=== PATIENT | female | born 1965 | race Caucasian/White ===

== ENCOUNTER → 2024-03-20 11:37 | Outpatient (REF) | payer OTHER, SELFPAY | LOC: DHSLP 11:37 | PROVIDERS: ATTENDING PHYSICIAN Internal Medicine; FAMILY PHYSICIAN Family Medicine | DX: G47.30 Sleep apnea, unspecified (principal); R06.83 Snoring | CPT/HCPCS: 95800 ==

== ENCOUNTER → 2024-04-02 10:21 | Outpatient (REF) | payer OTHER, SELFPAY | LOC: RCS 10:21 | PROVIDERS: ATTENDING PHYSICIAN Internal Medicine Cardiovascular Disease; FAMILY PHYSICIAN Family Medicine | DX: I48.19 Other persistent atrial fibrillation (principal) | CPT/HCPCS: 93306 ==

== ENCOUNTER 2024-04-13 07:49 | Day surgery (SDC) | payer OTHER, SELFPAY ==
[2024-03-26 09:58] VITALS: BMI 19.1
[2024-03-26 10:21] LABS: % Basophils 0.5 % (0-2); % Eosinophils 0.3 % (0-6); % Immature Granulocytes 0.2 % (0-0.5); % Lymphocytes 23.8 % (20.5-51.1); % Monocytes 6.7 % (1.7-9.3); % Neutrophils 68.5 % (42.2-75.2); Absolute Lymphocytes 1.4 10^3/uL (1.2-3.4); Absolute Monocytes 0.4 10^3/uL (0.1-0.6); Absolute Neutrophils 4.1 10^3/uL (1.4-6.5); Hematocrit 40.5 % (37.0-47.0); Mean Corp Hgb Conc. 34.6 g/dL (33.0-37.0); Mean Corpuscular Hgb 33.3 pg (27.0-31.0); Mean Corpuscular Volume 96.4 fL (81.0-99.0); Mean Platelet Volume 9.1 fL (7.4-10.4); Nucleated Red Blood Cells % 0 %; Platelet Count 221 10^3/uL (130-400); Red Cell Dist. Width 11.6 % (11.5-14.5)
[2024-03-26 10:34] LABS: INR 1.18; PT 15.3 Sec (11.4-14.6)
[2024-03-26 10:35] LABS: ALT (SGPT) 37 U/L (0-35); AST (SGOT) 35 U/L (14-36); Albumin 4.5 g/dl (3.5-5.0); Alkaline Phosphatase 62 U/L (38-126); Blood Urea Nitrogen 20 mg/dl (7-17); Calcium 9.7 mg/dl (8.4-10.2); Carbon Dioxide 28 mmol/L (22-30); Chloride 102 mmol/L (98-107); Estimated Creatinine Clearance 69 ml/min; Glucose 81 mg/dl (70-99); Potassium 4.4 mmol/L (3.5-5.1); Sodium 139 mmol/L (135-145); Total Bilirubin 0.5 mg/dl (0.2-1.3); Total Protein 7.2 g/dl (6.3-8.2); eGFR > 60.00
--- NOTE | 2024-03-26 10:58 | HPS.HSE ---
Family Physician
-
Family Physician: Avinash Mauricio
Chief Complaint
-
Persistent atrial fibrillation.
History of Present Illness
The patient is a 59 year old female presenting today for persistent atrial fibrillation. The patient reports a history of intermittent palpitations, fatigue, and decreased exercise tolerance associated with this diagnosis. She previously
underwent 2 cardioversions, with the last occurring in December 2023, for her arrhythmia. She is on current pharmacological therapy with Metoprolol Succinate. She was previously taking Flecainide but stopped due to a reported adverse side effect of
shortness of breath. She has been compliant with Eliquis for oral anticoagulation. She notes that her atrial fibrillation symptoms greatly interfere with her activities of daily living and overall impact her quality of life. She is interested in
pursuing pulmonary vein isolation for further arrhythmia management. She denies any current complaints today such as chest pain, shortness of breath at rest, nausea, vomiting, diarrhea, lightheadedness, dizziness, cough, sore throat, or fever.
Medical History
Past Medical History
Past Medical History: Reports Other
Additional Past Medical History:
1. Persistent atrial fibrillation, status post cardioversion x2; pharmacological therapy with Metoprolol Succinate, oral anticoagulation with Eliquis.
2. Exercise induced asthma.
3. Nephrolithiasis.
4. Remote migraines.
5. Right retinal tear, status post repair 2016.
Past Surgical History: Reports Other
Additional Past Surgical History:
1. PATTI-guided cardioversion.
2. Cardioversion.
3. Cystoscopy, renal stent placement and subsequent removal.
4. Breast biopsy (benign).
5. D&E.
6. Right retinal tear repair.
7. Bilateral LASIK eye surgery.
Social History
Tobacco: Non-smoker
Alcohol: None
Personal:
Living: Other (She lives in a split level home with her . )
Family History
Family History: Not pertinent
Allergies / Home Medications
Allergy/Medication List:
Home medications:
1. Apixaban 5 mg p.o. twice a day.
2. Cholecalciferol 50 mcg p.o. daily.
3. Estradiol 10 mcg vaginal as needed.
4. Heaven 180 mg p.o. daily as needed.
5. [place] 3-Flaxseed oil 1200 mg p.o. daily.
6. Metoprolol Succinate 25 mg p.o. daily.
7. Asmanex inhaler 1 inhalation daily.
8. Singulair 10 mg p.o. at bedtime.
9. PreserVision 1 tablet p.o. daily.
Allergies: Penicillin. Flecainide. Seasonal.
Review of Systems
-
A 12 point ROS was completed and negative except as noted: Yes
Physical Exam
Vital Signs
Blood pressure 130/75. Heart rate 79. Respirations 18. Pulse ox 100% on room air.
Height 5 feet, 5 inches. Weight 52.1 kg. BMI 19.1.
Physical Exam
General: Well Developed, Well Nourished and No Apparent Distress
HEENT: NormoCephalic, Moist mucous membranes and Atraumatic
Respiratory: Clear
Cardiac: Irregular Rhythm
GI: Soft, Non Tender and Non Distended
Musculoskeletal: Normal Gait & Station
Skin: Warm and Dry
Neuro: AO x 3 and Nonfocal/grossly intact
Laboratory Results
-
03/26/24 10:07
03/26/24 10:07
Laboratory Results
PT 15.3 Sec (11.4-14.6) H 03/26/24 10:07
INR 1.18 03/26/24 10:07
Total Bilirubin 0.5 mg/dl (0.2-1.3) 03/26/24 10:07
AST 35 U/L (14-36) 03/26/24 10:07
ALT 37 U/L (0-35) H 03/26/24 10:07
Alkaline Phosphatase 62 U/L (38-126) 03/26/24 10:07
Type and screen O positive.
EKG 03/26/2024: Atrial fibrillation.
Chest CT 03/26/2024: Short segment common vestibule for the left superior and inferior pulmonary veins, fairly commonly seen and considered normal variant. No evidence for left atrial thrombus.
Impression/Plan
-
IMPRESSION/PLAN:
1. Persistent atrial fibrillation: The patient is in need of pulmonary vein isolation with Dr. Devang Orosco on 04/13/2024. The benefits and risks of the procedure have been explained to the patient. The patient understands these risks and
wishes to proceed. She will not be required to undergo a pre-procedural transesophageal echocardiogram as she has been complaint with her home oral anticoagulation. She will continue Eliquis uninterrupted prior to her procedure. She will take no
medications the morning of her ablation.
[2024-04-13] VITALS (13 sets, daily range): BP systolic 81–109; BP diastolic 55–77
[2024-04-13 12:02] LABS: ACT-LR - POC 285 Seconds (116-155)
[2024-04-13 12:24] LABS: ACT-LR - POC 363 Seconds (116-155)
[2024-04-13 12:46] LABS: ACT-LR - POC 326 Seconds (116-155)
--- NOTE | 2024-04-13 13:46 | ITS.CL.ABL ---
Director Instrumentation - Ablation
Ablation
Procedure Report:
ELECTROPHYSIOLOGIC STUDY AND POSSIBLE ABLATION
DATE: April 13, 2024
Primary Care Provider: Dr. Avinash Mauricio
Primary Military Administrative Technician: Dr Giacomo Leonard
INDICATION:
Symptomatic Atrial Fibrillation.
Persistent
HISTORY: See H and P.
Symptomatic AF, poorly controlled with attempted medical therapy
HAS-BLED: 1
Age
CHADSVASc: 0
PRESENTING RHYTHM: AF
HISTORY: See H and P.
Symptomatic AF, poorly controlled with attempted medical therapy.
ANTICOAGULATION: Apixaban 5 mg twice daily
'TIME-OUT': called and confirmed.
SEDATION/ANESTHESIA: provided via the anesthesia department using general anesthesia.
PROCEDURE:
Ultrasound Guidance performed by wa was utilized for femoral venous Vascular Access b/l.
A decapolar CS catheter was placed within the CS for mapping and pacing.
The intracardiac ultrasound catheter was positioned in the RA for continuous intracardiac ultrasound imaging.
Heparin bolus and infusion to target ACT at 300 -350 seconds was administered. Transseptal puncture was performed. This entailed advancing a sheath with dilator into the superior vena cava and withdrawing both (monitoring intracardiac ultrasound,
fluoroscopy and tip pressure) with the tip oriented toward the atrial septum. The fossa ovalis was engaged (indicated by sudden displacement of the sheath tip as well as tenting of the fossa seen on intracardiac ultrasound).
[employer] transseptal system was used. Left atrial catheter position was confirmed by echocardiographic imaging, pressure monitoring (LA mean pressure 8 mm Hg) and fluoroscopy. The sheath was advanced over the dilator and positioned in the left
atrium.
The multipolar mapping catheter was initially positioned through the transseptal sheath for high density mapping.
Cardioversion was performed to attempt to map in sinus rhythm. Cardioversion restored sinus rhythm which lasted less than 10 seconds before atrial fibrillation resumed. Therefore mapping was performed in atrial fibrillation.
Geometry and voltage mapping was performed using the [employer] multipolar grid catheter. Ensite-X was utilized for three-dimensional electroanatomical mapping.
A 3-D map was created using [employer] in Voxel mode. A 3-D reconstructed CT image was compared to the 3-D Navex map to assist in anatomic evaluation, mapping and ablation.
The [employer] Pulse Select PFA catheter and system was used for cardiac ablation. Catheter positioning was guided and confirmed using both I.C.E. and fluoroscopy.
PV isolation approach was used to electrically isolate each PV ostia (LSPV, LIPV, RSPV, RIPV).
Additional energy applications/additional ablation set was required to accomplish wide area circumferential ablation around each of the pulmonary vein sets and additionally ablation to accomplish LA posterior wall ablation.
Cardioversion was once again performed this time and only restoring sinus rhythm but resulted in maintaining sinus rhythm. Remapping was performed in sinus rhythm.
Remapping with the [employer] multipolar grid catheter found that all PVPs were eliminated at each vein demonstrating entrance block. Also pacing from the multipolar mapping catheter around the the circumference of the ostia was performed at 10 ma and
2.0 msec output to assess for exit block. This demonstrated electrical isolation at the pulmonary vein ostia of the LSPV, LIPV and RIPV but not the right superior pulmonary vein as there is electrical conduction at the anterior superior quadrant.
There is also entrance and exit block at the LA posterior wall. The ablation catheter was then substituted for the mapping catheter and additional PFA lesions were delivered to the right superior pulmonary vein at its superior anterior quadrant
until electrical isolation was achieved. Additional lesions were given to the low posterior wall of the left atrium towards the left inferior pulmonary vein to further extend posterior wall isolation.
Programmed electrostimulation failed to induce any sustained arrhythmias.
I.C.E. :
Pre-Ablation Post-Ablation
LVEF: 55 % 55 %
WMA: none none
Pericardial effusion: trace trace
COMPLICATIONS:
none
SUMMARY:
- Mapping and ablation to isolate the PVs
- Additional AF ablation set after PVI.
- 3-D Electroanatomical Mapping
- Intracardiac Ultrasound
Post ablation, I discussed today's findings and results with the patient's , Donta
RECOMMENDATIONS:
- Observe in monitored bed.
- Maintain oral anticoagulation.
- Office visit with EP WOLF in 2-4 weeks and then with me in 4 months.
- Continue cardiovascular care with Dr Giacomo Leonard
Copy to: Dr Giacomo Leonard
--- NOTE | 2024-04-13 16:56 | W.PN.UPDATE ---
Update Note
Progress Note Update
Pt seen post PFA. Right groin site with vascade and FOE closure, no ht/bleeding, oob ambulating. Post EKG NSR 60, no acute changes, some bradycardia noted on tele 40-50s. Resume eliquis tonight. Will decrease metoprolol to 12.5mg daily d/t
bradycardia. Followup at [facility] arranged. Home today if groin site/tele remain stable.
== END 2024-04-13 17:05 | disposition home or self-care (01) ==
LOC: CATH 07:49
PROVIDERS: ATTENDING PHYSICIAN Internal Medicine Cardiovascular Disease; FAMILY PHYSICIAN Family Medicine; OTHER PHYSICIAN Chiropractor
DX: I48.19 Other persistent atrial fibrillation (principal); J45.990 Exercise induced bronchospasm; Z00.6 Encounter for examination for normal comparison and control in clinical research program; Z87.442 Personal history of urinary calculi; G43.909 Migraine, unspecified, not intractable, without status migrainosus; Z95.820 Peripheral vascular angioplasty status with implants and grafts; Z79.01 Long term (current) use of anticoagulants; Z79.899 Other long term (current) drug therapy; Z79.51 Long term (current) use of inhaled steroids; Z88.0 Allergy status to penicillin
CPT/HCPCS: C1760; C1733; C1769; C1892; C1766; C1894; 36415; 75572; 80053; 83735; 85025; 85347; 85610; 86850; 86900; 86901; 93005; 93656; 93657; C1732; Q9967

== ENCOUNTER 2024-09-26 09:32 | Day surgery (SDC) | payer OTHER, SELFPAY ==
[2024-09-17 07:59] VITALS: BMI 18.8
[2024-09-17 08:42] LABS: % Basophils 1.3 % (0-2); % Eosinophils 2.9 % (0-6); % Immature Granulocytes 0.3 % (0-0.5); % Lymphocytes 35.3 % (20.5-51.1); % Neutrophils 49.2 % (42.2-75.2); Absolute Basophils 0.1 10^3/uL (0-0.2); Absolute Eosinophils 0.1 10^3/uL (0-0.7); Absolute Lymphocytes 1.4 10^3/uL (1.2-3.4); Absolute Monocytes 0.4 10^3/uL (0.1-0.6); Absolute Neutrophils 1.9 10^3/uL (1.4-6.5); Hematocrit 38.2 % (37.0-47.0); Hemoglobin 13.1 g/dL (12.0-16.0); Mean Corp Hgb Conc. 34.3 g/dL (33.0-37.0); Mean Corpuscular Hgb 33.5 pg (27.0-31.0); Mean Corpuscular Volume 97.7 fL (81.0-99.0); Mean Platelet Volume 9.4 fL (7.4-10.4); Nucleated Red Blood Cells % 0 %; Platelet Count 224 10^3/uL (130-400); Red Blood Cell Count 3.91 10^6/uL (4.20-5.40); Red Cell Dist. Width 11.5 % (11.5-14.5); White Blood Cell Count 3.8 10^3/uL (4.8-10.8)
[2024-09-17 08:48] LABS: INR 1.12; PT 14.8 Sec (11.4-14.6)
[2024-09-17 09:12] LABS: ALT (SGPT) 17 U/L (0-35); AST (SGOT) 26 U/L (14-36); Albumin 4.5 g/dl (3.5-5.0); Alkaline Phosphatase 71 U/L (38-126); Blood Urea Nitrogen 14 mg/dl (7-17); Calcium 9.8 mg/dl (8.4-10.2); Carbon Dioxide 27 mmol/L (22-30); Chloride 108 mmol/L (98-107); Estimated Creatinine Clearance 82 ml/min; Glucose 89 mg/dl (70-99); Potassium 4.8 mmol/L (3.5-5.1); Sodium 142 mmol/L (135-145); Total Bilirubin 0.5 mg/dl (0.2-1.3); Total Protein 7.7 g/dl (6.3-8.2); eGFR > 60.00
[2024-09-26] VITALS (12 sets, daily range): BP systolic 89–131; BP diastolic 49–104
[2024-09-26 11:35] LABS: ACT-LR - POC 268 Seconds (116-155)
[2024-09-26 12:05] LABS: ACT-LR - POC 313 Seconds (116-155)
--- NOTE | 2024-09-26 13:02 | ITS.CL.ABL ---
Millinery Salesperson - Ablation
Ablation
Procedure Report:
ELECTROPHYSIOLOGIC STUDY AND POSSIBLE ABLATION
DATE: September 26, 2024
Primary Care Provider: Dr. Avinash Mauricio
Primary Home Therapy Teacher: Dr Giacomo Leonard
INDICATION:
Symptomatic Atrial Fibrillation
Previously persistent, then paroxysmal after ablation April 13, 2024
HISTORY: See H and P.
Symptomatic AF, poorly controlled with attempted medical therapy
HAS-BLED: 1
Age
CHADSVASc: 0
PRESENTING RHYTHM: SR
HISTORY: See H and P.
Symptomatic AF, poorly controlled with attempted medical therapy.
ANTICOAGULATION: Eliquis 5 mg twice daily
'TIME-OUT': called and confirmed.
SEDATION/ANESTHESIA: provided via the anesthesia department using general anesthesia.
PROCEDURE:
Ultrasound Guidance with real-time visualization of needle insertion and vessel patency performed by pa for femoral venous Vascular Access.
Under real-time US guidance, the needle was advanced with negative pressure into the vein. The needle was seen entering the vessel lumen with a good return of dark red flow, the syringe was removed, non-pulsatile, dark red blood low was noted and
the wire was passed without difficulty, then the needle was removed. US confirmed the wire was in the vein, not going into an artery,
Images were taken and saved for the patient's permanent record. Imaging findings typical femoral venous anatomy. Direct visualization of needle puncture into the femoral vein was observed and recorded.
A decapolar CS catheter was placed within the CS for mapping and pacing.
The intracardiac ultrasound catheter was positioned in the RA for continuous intracardiac ultrasound imaging.
Heparin bolus and infusion to target ACT at 300 -350 seconds was administered. Transseptal puncture was performed. This entailed advancing a sheath with dilator into the superior vena cava and withdrawing both (monitoring intracardiac ultrasound,
fluoroscopy and tip pressure) with the tip oriented toward the atrial septum. The fossa ovalis was engaged (indicated by sudden displacement of the sheath tip as well as tenting of the fossa seen on intracardiac ultrasound).
The Farapulse transseptal system was used. Left atrial catheter position was confirmed by echocardiographic imaging and fluoroscopy followed by RF delivery using the [employer] system resulting in successful LA access with pressure monitoring
demonstrating LA pressure waveforms (LA mean pressure 7 mm Hg). The sheath was advanced over the dilator and positioned in the left atrium.
The [employer] Grid multipolar mapping catheter was initially positioned through the transseptal sheath for high density mapping.
Geometry and voltage mapping was performed using the Briseno multipolar grid catheter. Ensite-X was utilized for three-dimensional electroanatomical mapping.
A 3-D map was created using Ensite-X in Voxel mode. A 3-D reconstructed CT image was compared to the 3-D Navex map to assist in anatomic evaluation, mapping and ablation.
There are 4 distinct pulmonary veins, left superior and left inferior as well as right superior and right inferior.
Mapping demonstrates a small area of electrical reconnection at the right inferior pulmonary vein towards its inferior posterior quadrant. Otherwise the pulmonary veins are isolated.
The [employer] PFA catheter and system was used for cardiac ablation. Catheter positioning was guided and confirmed using both I.C.E. and fluoroscopy.
PFA energy was then utilized to isolate the left inferior pulmonary vein by delivery of pulsed electric field energy to the area of reconnection.
After PVI is accomplished, high density electroanatomical mapping demonstrates there is complete posterior wall electrical isolation.
Additional mapping identified additional areas likely to be extra PV contributors to atrial fibrillation. These areas demonstrated patchy low voltage as well as complex fractionated electrograms. These areas can be sites for the formation of rotors
which can drive and maintain atrial fibrillation. These areas are known to be significant contributors to initiation and perpetuation of atrial fibrillation.
Additional energy applications/additional ablation sets targeted extra PV contributors to atrial fibrillation.
Targets for additional PFA ablation included:
The floor of the left atrium
This was targeted with PFA energy to complete a posterior wall floor line
Continued mapping identified further target.
The ridge of tissue between the left atrial appendage and the left sided pulmonary veins (Ligament of Lazaro )
These areas (left atrial floor as well as ligament of Lazaro) were ablated using pulsed electric field energy eliminating the extra PV contributors to atrial fibrillation.
Post ablation mapping finds entrance and exit block at each of the pulmonary veins (LSPV, LIPV, RSPV, RIPV), the LA posterior wall and at the additional lines at the Inferior/floor of the LA and the Ligament of Marshal rendering the sites no longer
able to contribute to atrial fibrillation.
Programmed electrostimulation including burst atrial pacing as well the delivery of decremental extrastimuli down to atrial effective refractory period and no sustained arrhythmias could be induced.
I.C.E. :
Pre-Ablation Post-Ablation
LVEF: 55 % 55 %
WMA: none none
Pericardial effusion: none none
COMPLICATIONS:
none
SUMMARY:
- Mapping and ablation to isolate the PVs
- Additional AF ablation set after PVI and LA post wall isolation.
LA floor
The ridge of tissue between the left atrial appendage and the left sided pulmonary veins (Ligament of Lazaro )
- 3-D Electroanatomical Mapping
- Intracardiac Ultrasound
- Ultrasound guidance for vascular access
Post ablation, I discussed today's findings and results with the patient's , Donta..
RECOMMENDATIONS:
- Observe in monitored bed.
- Maintain oral anticoagulation.
- Office visit with me is scheduled for January 18, 2025
Copy to:
Dr. Avinash Mauricio
Dr Giacomo Leonard
--- NOTE | 2024-09-26 15:50 | W.PN.UPDATE ---
Update Note
Progress Note Update
Pt seen post PFA. Right groin site without ht/bleeding. Post EKG SB 57, no acute changes. Resume eliquis tonight at usual time. Followup at [facility] as scheduled. Home later today if groin site/tele remain stable.
== END 2024-09-26 17:05 | disposition home or self-care (01) ==
LOC: CATH 09:32
PROVIDERS: ATTENDING PHYSICIAN Internal Medicine Cardiovascular Disease; FAMILY PHYSICIAN Family Medicine
DX: I48.19 Other persistent atrial fibrillation (principal); J45.909 Unspecified asthma, uncomplicated; Z79.51 Long term (current) use of inhaled steroids; Z79.899 Other long term (current) drug therapy; Z88.0 Allergy status to penicillin; Z79.01 Long term (current) use of anticoagulants; I47.20 Ventricular tachycardia, unspecified; I47.19 Other supraventricular tachycardia
CPT/HCPCS: C1760; C1892; C1894; 36415; 80053; 83735; 85025; 85347; 85610; 86850; 86900; 86901; 93005; 93655; 93656; C1730; C1732; C1733; C1766; C1769

== ENCOUNTER → 2025-03-05 08:59 | Outpatient (REF) | payer OTHER, SELFPAY | LOC: RCS 08:59 | PROVIDERS: ATTENDING PHYSICIAN Internal Medicine Cardiovascular Disease; FAMILY PHYSICIAN Family Medicine | DX: I48.19 Other persistent atrial fibrillation (principal) | CPT/HCPCS: 93306 ==